=== PATIENT | male | born 1990 | race African-American/Black ===

== ENCOUNTER 2017-05-01 13:44 | Emergency (ER) | payer OTHER ==
[~2017-05-01] VITALS: Ht 177.8 cm; Wt 76.2 kg
[~2017-05-01 13:44] MED LIST: CIPRO500 M1 PO; CLEOCIN HCL300 MG PO; ULTRAM 50MG TAB50 MG PO
[2017-05-01 15:37] VITALS: BP 140/73
== END 2017-05-01 15:38 | disposition home or self-care (01) ==
LOC: ER 13:44
DX: S83.8X2A Sprain of other specified parts of left knee, initial encounter (principal); W18.49XA Other slipping, tripping and stumbling without falling, initial encounter; Y93.89 Activity, other specified; Y92.002 Bathroom of unspecified non-institutional (private) residence as the place of occurrence of the external cause; Y99.8 Other external cause status

== ENCOUNTER 2017-05-05 10:12 | Emergency (ER) | payer OTHER ==
[~2017-05-05] VITALS: Ht 175.3 cm; Wt 72.6 kg
[2017-05-05] MEDS ORDERED: NORCO 5-325 TA1 EACH PO (11:11)
[2017-05-05 11:26] VITALS: BP 130/86
== END 2017-05-05 11:12 | disposition home or self-care (01) ==
LOC: ER 10:12
DX: M25.562 Pain in left knee (principal)